=== PATIENT | male | born 1970 | race Caucasian/White ===

== ENCOUNTER → 2022-03-22 12:07 | Outpatient (BNVA) | payer BC, SELFPAY | PROVIDERS: Visit Provider Nurse Practitioner Family | DX: E03.9 Hypothyroidism, unspecified (principal); J06.9 Acute upper respiratory infection, unspecified; J30.2 Other seasonal allergic rhinitis; Z12.5 Encounter for screening for malignant neoplasm of prostate; Z12.11 Encounter for screening for malignant neoplasm of colon | CPT/HCPCS: 80053; 80061; 83721; 84443; G0103 ==

== ENCOUNTER 2022-06-21 06:56 | Outpatient (CLI) | payer BC, SELFPAY ==
[2022-06-21] MEDS: iohexol 350 mg/mL 500 mL Btl (per mL) IV (07:06)
--- NOTE | 2022-06-21 07:30 | CT_ITS ---
WS: [id number] CTA HEAD TECHNIQUE: Contrast enhanced CTA of the head with coronal and sagittal reformatted images and maximum intensity projection (MIP) images. NASCET criteria utilized. CLINICAL INFORMATION: FAMILY HISTORY ANEURYSM, DIZZINESS, DOAN COMPARISON: None. DLP: 1729.[address] scans at [facility] use at least one of these dose optimization techniques: automated e xposure control; mA and/or kV adjustment per patient size (includes targeted exams where dose is matc hed to clinical indication); or iterative reconstruction. FINDINGS: No evidence of intracranial hemorrhage or mass effect. Ventricular system and basal cisterns are anna nt. No hydrocephalus. No significant parenchymal volume loss. Normal contreras-white differentiation. Normal dural venous sinuses. Paranasal sinuses are well aerated. Mastoid air cells are well aerated. Normal posterior nasopharynx. Distal vertebral arteries are patent. Basilar artery is patent. Normal vascularity to the [place] territo ry bilaterally. Both ICAs are patent at the skull base. Normal vascularity to the NAND[place] and MCA territories bilaterally . No evidence of flow-limiting stenosis or aneurysm. Patent anterior communicating artery. Incidental prominent LEFT sphenoparietal sinus or cortical draining vein. CT/CT angio head [id number] IMPRESSION: 1. Normal intracranial CTA. 2. No evidence of flow-limiting stenosis or aneurysm.
== END 2022-06-21 06:57 | disposition home or self-care (01) ==
PROVIDERS: PCP Nurse Practitioner Family; Visit Provider Nurse Practitioner Family
DX: Z82.49 Family history of ischemic heart disease and other diseases of the circulatory system (principal); R42 Dizziness and giddiness
CPT/HCPCS: 70496; Q9967